=== PATIENT | female | born 1995 | race Two or more races ===

== ENCOUNTER 2021-05-15 20:00 | Inpatient (IN) | payer OTHER ==
[~2021-05-15] VITALS: Ht 157.5 cm; Wt 52.6 kg
== END 2021-05-17 17:25 | disposition home or self-care (01) | DRG 833 ==
LOC: OBS/DEL 20:00 → LDR 05-16 12:48 → OBS/DEL 05-16 12:48 → LDR 05-17 17:25
PROVIDERS: ADMIT Obstetrics & Gynecology Obstetrics; ATTEND Obstetrics & Gynecology Obstetrics
PROC: 4A1HXCZ Monitoring of Products of Conception, Cardiac Rate, External Approach (ICD-10-PCS; principal; 2021-05-16)
PROC: BY4FZZZ Ultrasonography of Third Trimester, Single Fetus (ICD-10-PCS; 2021-05-16)
DX: O60.03 Preterm labor without delivery, third trimester (principal); Z3A.36 36 weeks gestation of pregnancy; Z20.822 Contact with and (suspected) exposure to COVID-19

== ENCOUNTER 2021-05-29 16:30 | Inpatient (IN) | payer OTHER ==
[~2021-05-29] VITALS: Ht 157.5 cm; Wt 52.2 kg
[2021-05-29] MEDS ORDERED: DIALYVITE 800-1 EACH PO (17:11)
[2021-05-29] MEDS ORDERED: PRENATAL + DHA1 EAC1 PO (17:11)
== END 2021-05-31 16:20 | disposition home or self-care (01) | DRG 833 ==
LOC: OBS/DEL 16:30 → LDR 05-30 13:50
PROVIDERS: ADMIT Obstetrics & Gynecology Obstetrics; ATTEND Obstetrics & Gynecology Obstetrics
PROC: 4A1HXCZ Monitoring of Products of Conception, Cardiac Rate, External Approach (ICD-10-PCS; principal; 2021-05-30)
DX: O23.33 Infections of other parts of urinary tract in pregnancy, third trimester (principal); Z3A.38 38 weeks gestation of pregnancy; Z20.822 Contact with and (suspected) exposure to COVID-19

== ENCOUNTER → 2021-05-31 | Emergency (ER) | payer OTHER ==
[~2021-05-31] MED LIST: DIALYVITE 800-1 EACH PO; PRENATAL + DHA1 EAC1 PO
== END | disposition home or self-care (01) ==
LOC: ER 23:16
DX: N39.0 Urinary tract infection, site not specified (principal); O23.40 Unspecified infection of urinary tract in pregnancy, unspecified trimester

== ENCOUNTER 2021-06-06 19:01 | Inpatient (IN) | payer OTHER ==
[~2021-06-06] VITALS: Ht 157.5 cm; Wt 54.4 kg
== END 2021-06-09 17:21 | disposition home or self-care (01) | DRG 807 ==
LOC: OB/GYN 19:01 → LDR 19:01 → OB/GYN 06-07 14:04
PROVIDERS: ADMIT Obstetrics & Gynecology Obstetrics; ATTEND Obstetrics & Gynecology Obstetrics
PROC: 4A1HXCZ Monitoring of Products of Conception, Cardiac Rate, External Approach (ICD-10-PCS; 2021-06-06)
PROC: 10E0XZZ Delivery of Products of Conception, External Approach (ICD-10-PCS; principal; 2021-06-07)
DX: O80 Encounter for full-term uncomplicated delivery (principal); Z37.0 Single live birth; Z3A.40 40 weeks gestation of pregnancy; Z20.822 Contact with and (suspected) exposure to COVID-19